=== PATIENT | female | born 1995 | race Two or more races ===

== ENCOUNTER 2018-03-14 09:43 | Emergency (ER) | payer OTHER ==
[~2018-03-14] VITALS: Ht 157.5 cm; Wt 61.2 kg
[~2018-03-14 09:43] MED LIST: ACETAMINOPHEN500 M3 ORAL; CARBAMAZEPINE200 MG ORAL; DEPAKOTE500 MG PO; IBUPROFEN600 MG ORAL; KLONOPIN1 MG ORAL; PROZAC20 MG ORAL; RISPERDAL2 MG ORAL; TEMAZEPAM15 MG ORAL
[2018-03-14 10:13] VITALS: BP 115/76
--- NOTE | 2018-03-14 10:47 | Emergency Room Report ---
History of Present Illness General Chief Complaint: Multiple Trauma/Fall Source: Caregiver Present Illness HPI 22-year-old female, nonverbal with history of cerebral palsy, right-sided weakness, presents with mechanical slip and fall, a curtain shower, no loss consciousness, did have chipped tooth, and abrasions. Allergies: Coded Allergies: No Known Allergies (Unverified , 10/22/15) Patient History Limited by: medical condition Past Medical History: see triage record Last Menstrual Period: NA Reviewed Nursing Documentation: PMH: Agreed; PSxH: Agreed Nursing Documentation-PMH Past Medical History: No History, Except For Hx Cardiac Problems: No - cerebral palsy, MR, seizures Hx Seizures: Yes Review of Systems All Other Systems: limited Physical Exam Vital Signs Date Time Temp Pulse Resp B/P (MAP) Pulse Ox O2 Delivery O2 Flow Rate FiO2 03/14/18 10:08 98.4 92 18 115/76 99 Room Air 98.4 Sp02 EP Interpretation: reviewed, normal General Appearance: no apparent distress, alert, non-toxic Head: normocephalic Eyes: bilateral eye normal inspection, bilateral eye PERRL ENT: normal ENT inspection, hearing grossly normal, normal pharynx, no angioedema, normal voice, moist mucus membranes, other - R upper lip with 0.5cm lac, no bleeding or contamination, tiny chipped tooth #6 Neck: normal inspection, full range of motion, supple, no bony tend, supple/ symm/no masses Respiratory: chest non-tender, lungs clear, normal breath sounds, no rhonchi, no respiratory distress, no retraction, no accessory muscle use, chest symmetrical, palpation of chest normal Cardiovascular #1: normal peripheral pulses, regular rate, rhythm, no edema Cardiovascular #2: 2+ radial (R), 2+ radial (L) Gastrointestinal: normal inspection, non tender, soft, no mass, no guarding, no rebound Rectal: deferred Genitourinary: normal inspection, no CVA tenderness Musculoskeletal: normal inspection, back normal, normal range of motion - FROM passively with no bony tenderness, R club foot, non-tender, no calf tenderness Neurologic: alert, responsive, motor strength/tone normal - at baseline with R sided weakness, sensory intact Psychiatric: mood/affect normal Skin: normal color, no rash, warm/dry, normal turgor, abrasions - R elbow and R lateral malleolus Lymphatic: no adenopathy Medical Decision Making ER Course patient with slip and fall, chipped tooth, lip abrasion/small lac, will dc. CT head/cspine without abnormality. No resp symptoms or abnormal exam findings, do not suspect aspiration of tiny tooth fragment CT/MRI/US Diagnostic Results CT/MRI/US Diagnostic Results #1: Imaging Test Ordered: ct head Impression no acute dz, old mca infarct CT/MRI/US Diagnostic Results #2: Imaging Test Ordered: ct c spine Impression no acute dz Last Vital Signs Date Time Temp Pulse Resp B/P (MAP) Pulse Ox O2 Delivery O2 Flow Rate FiO2 03/14/18 10:13 98.4 92 18 115/76 99 Room Air 98.4 Disposition: HOME, SELF-CARE Condition: Stable PAOLA SOTO M.D Mar 14, 2018 10:47
[2018-03-14] MEDS ORDERED: Haloperidol 5mg/ml Inj IM ONE (12:00)
[2018-03-14] MEDS ORDERED: DiphenhydrAMINE 50mg/ml Inj IM ONE (12:00)
[2018-03-14] MEDS ORDERED: LORazepam Inj 2mg/ml 1ml IM ONE (12:00)
--- NOTE | 2018-03-14 13:48 | Diagnostic Imaging Report ---
Indication: 22-year-old female history of cerebral palsy right-sided weakness. Presents with trauma and headache Technique: Contiguous 5 mm thick transaxial imaging of the head obtained in a Siemens Sensation [address] scanner. Soft tissue and bone windows generated. Automatic Exposure Control was utilized. Total Dose length Product (DLP): 1442.[address] Dose Index Volume (CTDIvol): 70.38 mGy Comparison: none Findings: There is a prominent focus of encephalomalacia involving left temporal lobe with the some involvement of the part of the left frontal lobe and parietal lobe. Volume loss results in compensatory dilatation of the left lateral ventricle and hyperostosis of the left aspect of the calvarium, all signs of long-standing remote injury probably vascular involving the MCA territory. There is scalp swelling over the left parietal region presumably on the basis of previous trauma. Correlate clinically. There is no mass effect or edema identified. No definite midline shift, mass effect or acute hemorrhage identified within the brain. IMPRESSION: No mass effect, edema or acute intracranial hemorrhage identified. Swelling of the scalp over the left aspect of the calvarium presumably on the basis of recent trauma. Correlate clinically. Evidence of a large, old left MCA territory infarct. The CT scanner at [facility] is accredited by the [employer] and the scans are performed using dose optimization techniques as appropriate to a performed exam including Automatic Exposure control.
--- NOTE | 2018-03-14 13:50 | Diagnostic Imaging Report ---
Indication: Neck pain. Recent trauma. Technique: Continuous helical imaging of the cervical spine was obtained transaxially from the skull base to the upper thoracic spine. 2-D coronal and sagittal reformatted images were obtained. Automatic Exposure Control was utilized. Total Dose length Product (DLP): 376.[address] Dose Index Volume (CTDIvol): 17.3 mGy Comparison: None Findings: The neck is turned to the left and the some limitation in terms of interpretation because of this. Having said that, there is no evidence of an acute fracture. No obvious malalignment identified. Other osseous structures including the skull base appear intact. There is no soft tissue swelling identified. IMPRESSION: Negative CT of the cervical spine with limitations as above The CT scanner at [facility] is accredited by the [employer] and the scans are performed using dose optimization techniques as appropriate to a performed exam including Automatic Exposure control.
[2018-03-14] MEDS ORDERED: IBUPROFEN600 MG ORAL (14:05)
[2018-03-14 14:39] VITALS: BP_SYST 115; BP_SYST 90; BP_DIAS 67; BP_DIAS 76
== END 2018-03-14 14:39 | disposition home or self-care (01) ==
LOC: EMR 11:00
DX: S01.511A Laceration without foreign body of lip, initial encounter (principal); S50.311A Abrasion of right elbow, initial encounter; S90.511A Abrasion, right ankle, initial encounter; S02.5XXA Fracture of tooth (traumatic), initial encounter for closed fracture; W18.2XXA Fall in (into) shower or empty bathtub, initial encounter; Y93.E1 Activity, personal bathing and showering; Y92.192 Bathroom in other specified residential institution as the place of occurrence of the external cause; R51 Headache; Z86.73 Personal history of transient ischemic attack (TIA), and cerebral infarction without residual deficits
CPT/HCPCS: 70450; 72125; 96372; 99284; J1200; J1630